=== PATIENT | female | born 1980 | race Caucasian/White ===

== ENCOUNTER 2018-09-04 07:21 | Outpatient (CLI) | payer OTHER | END 2018-09-04 07:22 | disposition home or self-care (01) | LOC: LAB 07:21 | PROVIDERS: ATTEND Internal Medicine | DX: Z01.812 Encounter for preprocedural laboratory examination (principal) | CPT/HCPCS: 36415; 82565 ==

== ENCOUNTER 2018-09-05 08:04 | Outpatient (CLI) | payer OTHER ==
--- NOTE | 2018-09-06 08:20 | MRI ---
EXAM: MRI of the cervical spine with and without contrast HISTORY: Cervical radiculopathy TECHNIQUE: Multiplanar imaging of the cervical spine was performed using T1, T2, inversion recovery, postcontrast T1W sequences. Comparison none. FINDINGS: There is straightening of the cervical spine. There is no bone marrow edema. The cranioc ervical junction and prevertebral soft tissues are normal. The cervical spinal cord demonstrates nor mal signal on T2W images. The paraspinal soft tissues are normal. Segmental analysis: C2-C3: The central canal and neural foramina appear patent. C3-C4: The central canal and neural foramina appear patent. C4-C5: The central canal and neural foramina appear patent. C5-C6: The central canal and neural foramina appear patent. C6-C7: There is mild cervical spondylosis resulting in mild central canal stenosis. There is uncove rtebral joint hypertrophy and degeneration resulting in moderate left and mild to moderate right fora keith stenosis. C7-T1: The central canal and neural foramina appear patent. IMPRESSION: There is mild degenerative disc disease and cervical spondylosis seen at C6-C7 resulting in mild central canal stenosis. No cord signal abnormalities are seen. Bilateral up to moderate foraminal stenosis seen at C6-C7 secondary to uncovertebral joint and facet joint arthritis.
== END 2018-09-05 08:05 | disposition home or self-care (01) ==
LOC: RAD 08:04
PROVIDERS: ATTEND Internal Medicine
DX: M54.2 Cervicalgia (principal); M54.12 Radiculopathy, cervical region